=== PATIENT | female | born 1970 | race Caucasian/White ===

== ENCOUNTER 2016-08-25 17:14 | Inpatient (IN) | payer MEDICARE, OTHER ==
[~2016-08-25] VITALS: Ht 157.5 cm; Wt 102.5 kg
[~2016-08-25 17:14] MED LIST: ACID1TAB12 PO; AMIN30LI2 PO; ARGI1POW13 PO; ASCO500T9 PO; BUPR300T52 PO; CHOL10002 PO; FAMO40TA7 PO; FERR-58 PO; FLUT16SP BNOSTRILS; Gel Dressing TP; MULT1TAB11 PO; OMEG500C3 PO; SULF1TAB3 PO; WHEA152P PO; ZINC220T PO
--- NOTE | 2016-08-25 17:23 | NUR ---
NGUYEN FROM [facility]-- SENT MY MD SON DT OPEN WOUND ON BUTTOCKS AREA. PATIENT IS AAO4, APPEARS IN NO APPARENT DISTRESS, RESPIRATION EVEN AND UNLABORED. SKIN IS WARM TO TOUCH AND NON DIAPHORETIC, AFEBRILE. VSS. GOWNED PT AND PLACED ON TELE MONITOR. VSS
[2016-08-25] MEDS ORDERED: CEFTRIAXONE 1GM BAG (ER ONLY) 1 GM/50 ML PIGGYBACK IV ONE (17:30)
[2016-08-25] MEDS ORDERED: IV SET PRIMARY 1 EA INFUS.SET MC ONE (17:39)
[2016-08-25] MEDS ORDERED: CEFTRIAXONE 1GM BAG (ER ONLY) 50 ML IV ONE (17:39)
--- NOTE | 2016-08-25 17:41 | NUR ---
DR. VALVERDE ON THE PHONE WITH LACY CORBIN
--- NOTE | 2016-08-25 17:43 | NUR ---
DUE MEDICATION GIVEN ORDERED
[2016-08-25 17:48] LABS: BASOPHILS % (AUTO) 0.5 % (0.0-2.0); EOSINOPHILS % (AUTO) 0.2 % (0.0-6.0); HEMATOCRIT 39 % (33-45); HEMOGLOBIN 12.7 g/dL (11.5-14.8); LYMPHOCYTES # (AUTO) 2.2 /CMM (0.8-4.8); MEAN CORPUSCULAR HEMOGLOBIN 26 PG (26.0-33.0); MEAN CORPUSCULAR HGB CONC 33 g/dl (31.0-36.0); MEAN CORPUSCULAR VOLUME 78 fL (82-100); MONOCYTES # (AUTO) 0.4 /CMM (0.1-1.30); MONOCYTES % (AUTO) 4.6 % (2.0-12.0); NEUTROPHILS # (AUTO) 7.1 /CMM (1.8-8.9); NEUTROPHILS % (AUTO) 71.7 % (43.0-81.0); PLATELET COUNT (AUTO) 393 /CMM (150-450); RDW COEFFICIENT OF VARIATION 14.4 (11.5-15.0); RED BLOOD CELL COUNT(AUTO) 4.93 MIL/uL (4.0-5.2); WHITE BLOOD COUNT (AUTO) 9.7 K/uL (4.3-11.0)
[2016-08-25 17:58] LABS: CALCIUM, SERUM 8.8 mg/dL (8.5-10.1); CREATININE 0.7 mg/dL (0.6-1.3); POTASSIUM 3.8 mmol/L (3.5-5.1)
[2016-08-25 18:02] LABS: INR 0.94 (0.87-1.13); PROTHROMBIN TIME 9.8 SECS (9.5-12.7)
[2016-08-25] MEDS ORDERED: IOHEXOL-300 100 ML VIAL IV ONE (18:11)
[2016-08-25] MEDS ORDERED: IV NS 0.9% 250 ML IV ONE ×2 (18:11→20:46)
[2016-08-25] MEDS ORDERED: CT SWABBABLE VALVE TRANS SET 1 EA INFUS.SET MC ONE (18:11)
--- NOTE | 2016-08-25 18:25 | NUR ---
PAGED [facility] (DR UMAÑA). AWAITING FOR DR UMAÑA TO CALL BACK.
--- NOTE | 2016-08-25 18:56 | NUR ---
PATIENT'S VSS. FAMILY AT BEDSIDE. REPORT GIVEN TO JOSEFA DRIVER FOR SOILA
[2016-08-25] MEDS ORDERED: MAG HYDROX/AL HYDROX/SIMETH 30 ML UDC PO PRN (19:30)
[2016-08-25] MEDS ORDERED: ACETAMINOPHEN 325 MG TABLET PO PRN (19:30)
[2016-08-25] MEDS ORDERED: MAGNESIUM HYDROXIDE 30 ML UDC PO PRN (19:30)
[2016-08-25] MEDS ORDERED: Z GUARD REMEDY 2 OZ OINT TP PRN (19:30)
[2016-08-25] MEDS ORDERED: ONDANSETRON HCL/PF 4 MG/2 ML VIAL IVP PRN (19:30)
[2016-08-25] MEDS ORDERED: ZOLPIDEM TARTRATE 5 MG TABLET PO PRN (19:30)
[2016-08-25] MEDS ORDERED: HYDROCODONE/APAP 5/325MG 1 EACH TABLET PO PRN (19:30)
--- NOTE | 2016-08-25 19:34 | NUR ---
Report given to Archie RIVERO for admission and lulu.
--- NOTE | 2016-08-25 19:42 | NUR ---
Patient transported to same day surgery center room 200, no incident noted. family at bedside.
[2016-08-25 20:00] VITALS: BP 122/70
[2016-08-25] MEDS ORDERED: CLINDAMYCIN 900 MG/6 ML VIAL ONE (20:34)
[2016-08-25] MEDS ORDERED: IV SET PRIMARY PUMP SET 1 EA INFUS.SET MC ONE (20:46)
[2016-08-25] MEDS ORDERED: IV D5W 50 ML IV ONE (20:46)
[2016-08-25] MEDS ORDERED: SECONDARY IV SET 1 EA INFUS.SET MC ONE (20:46)
[2016-08-25] MEDS: CLINDAMYCIN IV RTU IN D5W 900 MG/50 ML PIGGYBACK IV SCH (20:48)
[2016-08-26] MEDS ORDERED: IV D5W 50 ML IV ONE (03:53)
[2016-08-26] MEDS: CLINDAMYCIN IV RTU IN D5W 900 MG/50 ML PIGGYBACK IV SCH (03:56)
--- NOTE | 2016-08-26 06:14 | NUR ---
MS RN NOTES AWAKE & RESPONSIVE. NOT IN ANY DISTRESS. NO SOB NOTED. DENIES ANY PAIN OR DISCOMFORT AT THIS TIME. WITH IV-HL PATENT & INTACT. MONITORED ACCORDINGLY. CALL LIGHT WITHIN REACH. BED IN LOWEST POSITION. SR UP X 2 FOR SAFETY. WILL ENDORSE TO NEXT SHIFT.
[2016-08-26 06:21] LABS: BASOPHILS % (AUTO) 0.5 % (0.0-2.0); EOSINOPHILS % (AUTO) 0.5 % (0.0-6.0); HEMATOCRIT 38 % (33-45); HEMOGLOBIN 12.5 g/dL (11.5-14.8); LYMPHOCYTES # (AUTO) 2.1 /CMM (0.8-4.8); LYMPHOCYTES % (AUTO) 32.5 % (20.0-44.0); MEAN CORPUSCULAR HEMOGLOBIN 26 PG (26.0-33.0); MEAN CORPUSCULAR HGB CONC 33 g/dl (31.0-36.0); MEAN CORPUSCULAR VOLUME 80 fL (82-100); MONOCYTES # (AUTO) 0.6 /CMM (0.1-1.30); MONOCYTES % (AUTO) 8.9 % (2.0-12.0); NEUTROPHILS # (AUTO) 3.8 /CMM (1.8-8.9); NEUTROPHILS % (AUTO) 57.6 % (43.0-81.0); PLATELET COUNT (AUTO) 315 /CMM (150-450); RDW COEFFICIENT OF VARIATION 15.4 (11.5-15.0); RED BLOOD CELL COUNT(AUTO) 4.72 MIL/uL (4.0-5.2); WHITE BLOOD COUNT (AUTO) 6.6 K/uL (4.3-11.0)
[2016-08-26 06:49] LABS: CALCIUM, SERUM 8.5 mg/dL (8.5-10.1); CREATININE 0.5 mg/dL (0.6-1.3); MAGNESIUM 1.8 mg/dL (1.8-2.4); PHOSPHORUS 3.8 mg/dL (2.5-4.9); POTASSIUM 3.7 mmol/L (3.5-5.1)
--- NOTE | 2016-08-26 07:30 | NUR ---
MS RN OPENING RECEIVED PATIENT A/OX4 DENIES SOB, DIFFICULTY BREATHING OR PAIN. PATIENT STATES NO NEEDS AT THIS TIME AND CALL LIGHT IN REACH, BED LOWERED AND LOCKED, RAILS UPX3 FOR SAFETY AND WILL ROUND Q2H OR LESS PER NEEDS. PATIENT STABLE AT THIS TIME
[2016-08-26 08:00] VITALS: BP 108/68
[2016-08-26] MEDS ORDERED: Medication Not On Formulary EA (Arginine/Ascorbate Sod/Vite AC (Arginaid Powder) 1 EACH) PO SCH (09:00)
[2016-08-26] MEDS ORDERED: Medication Not On Formulary EA (Omega-3 Fatty Acids (Fish Oil) 1,000 MG) PO SCH (09:00)
[2016-08-26] MEDS: ASCORBIC ACID 500 MG TABLET PO SCH ×2 (09:24→16:43)
[2016-08-26] MEDS: ACIDOPHILUS/BULGARICUS 1 EACH TAB.CHEW PO SCH ×3 (09:24→16:43)
[2016-08-26] MEDS: CHOLECALCIFEROL 1,000 UNIT TABLET (VIT D3) PO SCH (09:24)
[2016-08-26] MEDS: FERROUS SULFATE (325 MG) 325 MG/TAB TABLET PO SCH ×2 (09:24→16:43)
[2016-08-26] MEDS ORDERED: LEVO137T24 PO (09:26)
[2016-08-26] MEDS: BUPROPION XL 150 MG TAB.ER.24 PO SCH (09:28)
[2016-08-26] MEDS: MULTIVITAMINS,THERAPEUTIC 1 UDTAB TABLET PO SCH (09:29)
[2016-08-26] MEDS: PROSTAT (PYXIS) 30 ML UDC PO SCH ×2 (09:30→16:43)
[2016-08-26] MEDS: FAMOTIDINE (20 MG) 20 MG TABLET PO SCH (09:30)
[2016-08-26] MEDS: ZINC SULFATE 220 MG CAPSULE PO SCH (09:33)
[2016-08-26] MEDS: Z GUARD REMEDY 2 OZ OINT TP SCH (09:40)
--- NOTE | 2016-08-26 09:45 | NUR ---
MS RN NOTES DR BONILLA AT BEDSIDE. PER MD GARCIA TO ORDER SYNTROID ACB 25MCG DAILY.
[2016-08-26] MEDS: FLUTICASONE PROPIONATE 16 GM BOTTLE NS SCH ×2 (11:41→16:43)
[2016-08-26] MEDS: CLINDAMYCIN 900 MG in IV D5W 50 ML IV SCH ×2 (13:19→21:18)
--- NOTE | 2016-08-26 13:22 | NUR ---
MS RN NOTES MEDICATION PYXIS HAS BEEN DOWN SINCE AM. UNABLE TO GIVE BENICAR TO PATIENT. WILL GIVE ONCE ABLE
[2016-08-26] MEDS: BENEFIBER 4 GM 1 EA PACKET PO SCH ×2 (13:58→16:36)
[2016-08-26 15:49] VITALS: BP 114/62
[2016-08-26 16:00] VITALS: BP 114/62
--- NOTE | 2016-08-26 16:30 | NUR ---
MS RN NOTES MOTHER AT BEDSIDE AND NOTIFIED OF THE PROCEDURES ORDERED. MOTHER SIGNED CONSENT.
--- NOTE | 2016-08-26 18:24 | NUR ---
MS RN CLOSING PATIENT STABLE NO COMPLICATIONS NO CHANGES THROUGHOUT DAY. ALL DUE MEDS GIVEN AND ALL NEEDS MET. CALL LIGHT IN REACH, BED LOWERED AND LOCKED, RAILS UPX3 FOR SAFETY. PATIENT UNDERSTANDS NPO MIDNIGHT. CARE WILL BE ENDORSED TO JOSEFA MAHMOOD FOR SOILA
[2016-08-26 20:00] VITALS: BP 121/69
[2016-08-27] MEDS: CLINDAMYCIN 900 MG in IV D5W 50 ML IV SCH ×3 (05:09→21:37)
--- NOTE | 2016-08-27 07:00 | NUR ---
MS RN OPENING RECEIVED PATIENT STABLE NO COMPLICATIONS, DENIES SOB, DIFFICULTY BREATHING OR PAIN AT THIS TIME. PATIENT HAS BEEN NPO FOR PROCEDURE AND STATES NO NEEDS. WILL CALL SURGERY AND FIND UPDATED TIME OF PROCEDURE. PATIENT STATES NO NEEDS AT THIS TIME. CALL LIGHT IN REACH, BED LOWERED AND LOCKED, RAILS UPX3 FOR SAFETY AND WILL ROUND Q2H OR LESS PER NEEDS.
[2016-08-27] MEDS: LEVOTHYROXINE SODIUM 25 MCG TABLET PO SCH (07:30)
[2016-08-27 08:00] VITALS: BP 115/67
--- NOTE | 2016-08-27 08:41 | NUR ---
WOUND CARE CONSULT WOUND CARE RECEIVED CONSULT, WOUND CARE WILL DEFER TO SURGICAL TEAM AT THIS TIME WITH WOUND CARE ASSIST IF REQUESTED. PATIENT WITH CURRENT ELADIO AT 18.
[2016-08-27] MEDS: FLUTICASONE PROPIONATE 16 GM BOTTLE NS SCH ×2 (08:48→16:01)
[2016-08-27] MEDS: Z GUARD REMEDY 2 OZ OINT TP SCH (08:48)
[2016-08-27] MEDS: BENEFIBER 4 GM 1 EA PACKET PO SCH ×2 (08:57→16:01)
[2016-08-27] MEDS: FERROUS SULFATE (325 MG) 325 MG/TAB TABLET PO SCH ×2 (08:57→16:01)
[2016-08-27] MEDS: ACIDOPHILUS/BULGARICUS 1 EACH TAB.CHEW PO SCH ×3 (08:57→16:01)
[2016-08-27] MEDS: PROSTAT (PYXIS) 30 ML UDC PO SCH ×2 (08:58→16:01)
[2016-08-27] MEDS: ASCORBIC ACID 500 MG TABLET PO SCH ×2 (08:58→16:01)
[2016-08-27] MEDS: MULTIVITAMINS,THERAPEUTIC 1 UDTAB TABLET PO SCH (08:58)
[2016-08-27] MEDS: BUPROPION XL 150 MG TAB.ER.24 PO SCH (09:00)
[2016-08-27] MEDS: CHOLECALCIFEROL 1,000 UNIT TABLET (VIT D3) PO SCH (09:00)
[2016-08-27] MEDS: ZINC SULFATE 220 MG CAPSULE PO SCH (09:00)
[2016-08-27] MEDS: FAMOTIDINE (20 MG) 20 MG TABLET PO SCH (09:00)
--- NOTE | 2016-08-27 13:30 | NUR ---
MS RN NOTES PATIENT TAKEN TO SURGICAL UNIT FOR SCHEDULED PROCEDURES. LEFT IN STABLE CONDITION
[2016-08-27] MEDS ORDERED: LIDOCAINE HCL/PF 1% 30 ML SDV ONE (13:47)
[2016-08-27] MEDS ORDERED: BUPIVACAINE MPF 0.5% W/EPI INJ 30 ML VIAL ONE (13:47)
[2016-08-27] MEDS ORDERED: SUCCINYLCHOLINE CHLORIDE 20 MG/ML VIAL ONE (13:50)
[2016-08-27] MEDS ORDERED: BACITRACIN 50000 UNITS/VIAL ONE (14:49)
[2016-08-27] MEDS ORDERED: NEOMY SULF/BACITRAC ZN/POLY 15 GM TUBE TP ONE (14:55)
--- NOTE | 2016-08-27 15:41 | NUR ---
MS RN NOTES PATIENT RETURNED FROM SURGICAL UNIT. STABLE. VS STABLE. DIET ORDERED AND SENT TO BEDSIDE. PATIENT STATES NO NEEDS AT THIS TIME
[2016-08-27 16:00] VITALS: BP 116/72
--- NOTE | 2016-08-27 16:47 | NUR ---
MS RN NOTES DR UMAÑA AWARE PATIENT POSITIVE MRSA NARES
[2016-08-27] MEDS ORDERED: NEOMY SULF/BACITRAC ZN/POLY 15 GM TUBE TP SCH (17:00)
--- NOTE | 2016-08-27 18:34 | NUR ---
MS RN CLOSING PATIENT STABLE NO COMPLICATIONS. ALL DUE MEDS GIVEN AND ALL NEEDS MET. MOTHER CALLED AND UPDATED ON CARE PLAN AND STATUS. PATIENT NEEDS IN REACH, ALL NEEDS ASSESSED AND MET. CALL LIGHT IN REACH, BED LOWERED AND LOCKED, RAILS UPX3 FOR SAFETY. PATIENT IS COUGHING AFTER PROCEDURE. MESSAGE TO DR UMAÑA FOR MEDICATION FOR THROAT. PER MD ORDER ROBITUSSIN AC 10ML PO Q4H PRN
[2016-08-27] MEDS ORDERED: GUAIFENESIN/CODEINE 10 ML UDC PO PRN (19:00)
--- NOTE | 2016-08-27 19:30 | NUR ---
MS RN OPENING RECEIVED PATIENT STABLE NO COMPLICATIONS, DENIES SOB, DIFFICULTY BREATHING OR PAIN AT THIS TIME. PATIENT STATES NO NEEDS AT THIS TIME. CALL LIGHT IN REACH, BED LOWERED AND LOCKED, RAILS UPX3 FOR SAFETY AND WILL ROUND Q2H OR LESS PER NEEDS.
[2016-08-27 20:00] VITALS: BP 111/68
[2016-08-27] MEDS: MUPIROCIN OINT 2% 22 GM TUBE SCH (21:37)
--- NOTE | 2016-08-28 03:00 | NUR ---
ms rn note dressing to buttocks noted to be soiled. Wound care performed as ordered. Patient tolerated well.
[2016-08-28] MEDS: CLINDAMYCIN 900 MG in IV D5W 50 ML IV SCH ×3 (05:44→21:54)
--- NOTE | 2016-08-28 06:11 | NUR ---
ms rn note PATIENT STABLE. ALL NEEDS MET AND ATTENDED TO. DRESSING TO BUTTOCKS CDI. WILL ENDORSE TO DAY SHIFT FOR SOILA.
[2016-08-28 06:56] LABS: BASOPHILS % (AUTO) 0.4 % (0.0-2.0); EOSINOPHILS % (AUTO) 0.5 % (0.0-6.0); HEMATOCRIT 38 % (33-45); HEMOGLOBIN 12.6 g/dL (11.5-14.8); LYMPHOCYTES # (AUTO) 2.1 /CMM (0.8-4.8); LYMPHOCYTES % (AUTO) 23.6 % (20.0-44.0); MEAN CORPUSCULAR HEMOGLOBIN 27 PG (26.0-33.0); MEAN CORPUSCULAR HGB CONC 33 g/dl (31.0-36.0); MEAN CORPUSCULAR VOLUME 80 fL (82-100); MONOCYTES # (AUTO) 0.5 /CMM (0.1-1.30); MONOCYTES % (AUTO) 6.3 % (2.0-12.0); NEUTROPHILS # (AUTO) 6.1 /CMM (1.8-8.9); NEUTROPHILS % (AUTO) 69.2 % (43.0-81.0); PLATELET COUNT (AUTO) 329 /CMM (150-450); RDW COEFFICIENT OF VARIATION 15.3 (11.5-15.0); RED BLOOD CELL COUNT(AUTO) 4.77 MIL/uL (4.0-5.2); WHITE BLOOD COUNT (AUTO) 8.8 K/uL (4.3-11.0)
[2016-08-28 07:04] LABS: CALCIUM, SERUM 8.4 mg/dL (8.5-10.1); CREATININE 0.6 mg/dL (0.6-1.3); POTASSIUM 3.9 mmol/L (3.5-5.1)
--- NOTE | 2016-08-28 07:39 | NUR ---
MS/RN NOTES RECEIVED PATIENT RESTING IN BED, SLEEPING AROUSES TO VERBAL STIMULI. NO ACUTE DISTRESS NOTED, BREATHING EVEN AND UNLABORED ON ROOM AIR. NO S/S OF DISCOMFORT NOTED, DENIES PAIN AT THIS TIME. PATIENT APPEARS RESTFUL AND COMFORTABLE. POC DISCUSSED AND AGREED. WOUND CARE TO BE DONE ORDERED. IV TO LAC HEP LOCK. SAFETY MEASURES RENDERED, CALL LIGHT PLACED WITHIN REACH. WILL CONTINUE TO MONITOR.
[2016-08-28 08:00] VITALS: BP 101/54
[2016-08-28] MEDS: HYDROGEL DRESSING 90 GM TUBE TP SCH ×2 (08:51→16:25)
[2016-08-28] MEDS: NEOMY SULF/BACITRAC ZN/POLY 15 GM TUBE TP SCH ×2 (08:52→16:26)
[2016-08-28] MEDS: MUPIROCIN OINT 2% 22 GM TUBE SCH ×2 (08:52→21:54)
[2016-08-28] MEDS: Z GUARD REMEDY 2 OZ OINT TP SCH (08:52)
[2016-08-28] MEDS: LEVOTHYROXINE SODIUM 25 MCG TABLET PO SCH (08:53)
[2016-08-28] MEDS: ZINC SULFATE 220 MG CAPSULE PO SCH (08:53)
[2016-08-28] MEDS: MULTIVITAMINS,THERAPEUTIC 1 UDTAB TABLET PO SCH (08:53)
[2016-08-28] MEDS: FERROUS SULFATE (325 MG) 325 MG/TAB TABLET PO SCH ×2 (08:53→16:24)
[2016-08-28] MEDS: BENEFIBER 4 GM 1 EA PACKET PO SCH ×2 (08:53→16:24)
[2016-08-28] MEDS: BUPROPION XL 150 MG TAB.ER.24 PO SCH (08:53)
[2016-08-28] MEDS: ACIDOPHILUS/BULGARICUS 1 EACH TAB.CHEW PO SCH ×3 (08:53→16:25)
[2016-08-28] MEDS: ASCORBIC ACID 500 MG TABLET PO SCH ×2 (08:53→16:24)
[2016-08-28] MEDS: CHOLECALCIFEROL 1,000 UNIT TABLET (VIT D3) PO SCH (08:53)
[2016-08-28] MEDS: FLUTICASONE PROPIONATE 16 GM BOTTLE NS SCH ×2 (08:54→16:25)
[2016-08-28] MEDS: PROSTAT (PYXIS) 30 ML UDC PO SCH ×2 (08:54→17:00)
[2016-08-28] MEDS: FAMOTIDINE (20 MG) 20 MG TABLET PO SCH (08:54)
--- NOTE | 2016-08-28 13:22 | NUR ---
MS NOTES SOILED DRESSING OF THE WOUND. WOUND CARE CARRIED OUT DIRECTED. PATIENT TOLERATED WELL.
[2016-08-28] MEDS ORDERED: SULF1TAB48 PO (13:40)
[2016-08-28 16:00] VITALS: BP 112/73
--- NOTE | 2016-08-28 18:28 | NUR ---
MS/RN NOTES PATIENT STABLE WITH NO SIGNIFICANT CHANGED. ALL NEEDS MET AND ATTENDED. ALL MEDICATIONS GIVEN ORDERED. PERFORMED DRESSING TO BUTTOCKS CDI. IV ANTIBIOTICS INFUSED AND TOLERATED WELL. CURRENTLY FAMILY AT BEDSIDE. SAFETY MEASURES RENDERED. WILL ENDORSE TO DIESEL TRUCK MECHANIC FOR SOILA.
--- NOTE | 2016-08-28 19:21 | NUR ---
MS/RN NOTES PER DR HOUSE TO HOLD DISCHARGE ORDERS UNTIL TOMORROW
--- NOTE | 2016-08-28 19:30 | NUR ---
MS RN NOTE: PATIENT RESTING IN BED, NO ACUTE DISTRESS NOTED. BREATHING EVEN AND UNLABORED, NO SOB NOTED. IV TO LAC IN PLACE. ISOLATION PRECAUTION OBSERVED, BED LOCKED AND IN LOWEST POSITION, CALL LIGHT IN REACH. WILL CONTINUE TO MONITOR.
[2016-08-28 20:13] VITALS: BP 120/74
--- NOTE | 2016-08-29 02:30 | NUR ---
MS RN NOTE: PATIENT SLEEPING IN BED, NO ACUTE DISTRESS NOTED. BREATHING EVEN AND UNLABORED, NO SOB NOTED. BED LOCKED AND IN LOWEST POSITION, CALL LIGHT IN REACH. WILL CONTINUE TO MONITOR.
[2016-08-29] MEDS ORDERED: IV NS 0.9% 50 ML IV ONE (05:29)
[2016-08-29] MEDS: CLINDAMYCIN 900 MG in IV D5W 50 ML IV SCH (05:35)
--- NOTE | 2016-08-29 06:00 | NUR ---
MS RN NOTE: PATIENT RESTING IN BED, NO ACUTE DISTRESS NOTED. BREATHING EVEN AND UNLABORED, NO SOB NOTED. IV TO LAC IN PLACE. ISOLATION PRECAUTION OBSERVED, BED LOCKED AND IN LOWEST POSITION, CALL LIGHT IN REACH. WILL ENDORSE TO DAY NURSE TO CONTINUE WITH PLAN OF CARE.
[2016-08-29 08:00] VITALS: BP 99/71
[2016-08-29] MEDS: Z GUARD REMEDY 2 OZ OINT TP SCH (08:20)
[2016-08-29] MEDS: NEOMY SULF/BACITRAC ZN/POLY 15 GM TUBE TP SCH (08:20)
[2016-08-29] MEDS: HYDROGEL DRESSING 90 GM TUBE TP SCH (08:21)
[2016-08-29] MEDS: MUPIROCIN OINT 2% 22 GM TUBE SCH (08:21)
[2016-08-29] MEDS: FLUTICASONE PROPIONATE 16 GM BOTTLE NS SCH (08:21)
[2016-08-29] MEDS: BENEFIBER 4 GM 1 EA PACKET PO SCH (08:22)
[2016-08-29] MEDS: LEVOTHYROXINE SODIUM 25 MCG TABLET PO SCH (08:22)
[2016-08-29] MEDS: CHOLECALCIFEROL 1,000 UNIT TABLET (VIT D3) PO SCH (08:22)
[2016-08-29] MEDS: ZINC SULFATE 220 MG CAPSULE PO SCH (08:22)
[2016-08-29] MEDS: MULTIVITAMINS,THERAPEUTIC 1 UDTAB TABLET PO SCH (08:22)
[2016-08-29] MEDS: ASCORBIC ACID 500 MG TABLET PO SCH (08:22)
[2016-08-29] MEDS: BUPROPION XL 150 MG TAB.ER.24 PO SCH (08:22)
[2016-08-29] MEDS: FAMOTIDINE (20 MG) 20 MG TABLET PO SCH (08:22)
[2016-08-29] MEDS: ACIDOPHILUS/BULGARICUS 1 EACH TAB.CHEW PO SCH (08:23)
[2016-08-29] MEDS: FERROUS SULFATE (325 MG) 325 MG/TAB TABLET PO SCH (08:23)
[2016-08-29] MEDS: PROSTAT (PYXIS) 30 ML UDC PO SCH (08:23)
== END 2016-08-29 12:00 | DRG 571 ==
LOC: ER 17:18 → MEDSG2 19:13
PROVIDERS: ADMIT Family Medicine; ATTEND Family Medicine
PROC: 0HB1XZZ Excision of Face Skin, External Approach (ICD-10-PCS; 2016-08-27)
PROC: 0JBL0ZZ Excision of Right Upper Leg Subcutaneous Tissue and Fascia, Open Approach (ICD-10-PCS; 2016-08-27)
PROC: 0JBM0ZZ Excision of Left Upper Leg Subcutaneous Tissue and Fascia, Open Approach (ICD-10-PCS; principal; 2016-08-27 14:15)
DX: L02.31 Cutaneous abscess of buttock (principal); E44.1 Mild protein-calorie malnutrition; Z68.41 Body mass index [BMI] 40.0-44.9, adult; L73.2 Hidradenitis suppurativa; R62.50 Unspecified lack of expected normal physiological development in childhood; I10 Essential (primary) hypertension; F32.9 Major depressive disorder, single episode, unspecified; E03.9 Hypothyroidism, unspecified; K21.9 Gastro-esophageal reflux disease without esophagitis; R56.9 Unspecified convulsions; E55.9 Vitamin D deficiency, unspecified; D64.9 Anemia, unspecified; L72.3 Sebaceous cyst; E66.01 Morbid (severe) obesity due to excess calories; F79 Unspecified intellectual disabilities
CPT/HCPCS: 36415; 71010-TC; 72193-TC; 80048-TC; 80061-TC; 83605-TC; 83735-TC; 84100-TC; 84703-TC; 85025-TC; 85730-TC; 87040-TC; 87081-TC; 88304-TC; 88305-TC; A4216; A4606; A6209; A6248; A6253; A6402; A6403; J0330; J0696; J1100; J2704; J3490; J7050; J7060; Q9967; Z7610